=== PATIENT | male | born 1935 | race Hispanic/Latino ===

== ENCOUNTER 2017-10-10 09:43 | Emergency (ER) | payer MEDICARE, OTHER ==
[~2017-10-10] VITALS: Ht 157.5 cm; Wt 85.0 kg
[~2017-10-10 09:43] MED LIST: ANAPROX DS550 MG OR; CIPROFLOXACN500 MG PO; FLEXERIL PO; FLONASE0.05 %; NAPROSYN500 MG PO; TYLENOL COL OR; ULTRAM50 M1 PO; VALTREX500 MG PO
[2017-10-10 10:11] VITALS: BP 150/80
== END 2017-10-10 10:18 | disposition home or self-care (01) ==
LOC: ED 09:43
DX: L60.8 Other nail disorders (principal)

== ENCOUNTER 2019-10-25 16:30 | Inpatient (IN) | payer MEDICARE, OTHER ==
--- NOTE | 2019-10-24 19:00 | NUR ---
RECEIVED REPORT FROM NURSE HUBBARD PATIENT SITTING IN CHAIR, CURRENTLY WATCHING TV, BREATHING UNLABORED, CALL LIGHT AT REACH.
[~2019-10-25] VITALS: Ht 157.5 cm; Wt 61.4 kg
--- NOTE | 2019-10-25 17:00 | NUR ---
pt to room 15 via ems stretcher after delay in offload, pt unkempt, soaked in urine and stool, pupils equal and constricted, pt alert to person only. swelling noted to left side of face, open blister noted to left upper abd, per ems pt found supine under his bed, last known well time 3 days ago. ems did note open beer cans in pt's room. ls diminished, resp shallow tachypneic, abd soft , non tender, bs hypoactive. rash noted to lle. pt changed into gown, bed bath given, belongings secured in belongings bag.
[2019-10-25 17:50] LABS: URINE BLOOD DIPSTICK LARGE (NEGATIVE); URINE COLOR YELLOW; URINE GLUCOSE - DIPSTICK NEGATIVE (NEGATIVE); URINE KETONE TRACE mg/dL (NEGATIVE); URINE NITRITE - DIPSTICK NEGATIVE (Negative); URINE PH 5.5 (4.5-8.0); URINE PROTEIN - DIPSTICK 100 mg/dL (NEG-TRACE); URINE SPECIFIC GRAVITY >=1.030
--- NOTE | 2019-10-25 17:50 | NUR ---
PT RESTING WITH EYES CLOSED, NO S/SF DISTRESS NOTED, CALL ANDREW WITHIN REACH
[2019-10-25 17:53] LABS: HEMOGLOBIN 17.1 g/dl (14.0-18.0); MEAN CELL VOLUME 94.6 fL CALC (80.0-100.0); MEAN CORPUSCULAR HGB 30.7 pG CALC (26.0-32.0); MEAN CORPUSCULAR HGB CONC 32.4 g/dL CAL (32.0-36.0); NEUT# 15.1 thou/uL (1.82-7.42); RED BLOOD COUNT 5.57 mill/uL (4.70-6.10); RED CELL DISTRI WIDTH 14.5 % (11.5-15.5)
[2019-10-25 17:55] LABS: HEMATOCRIT 52.7 % (39.0-50.0)
[2019-10-25 17:58] LABS: URINE BILIRUBIN - DIPSTICK NEGATIVE (NEGATIVE); URINE LEUK ESTERASE SMALL (NEGATIVE)
[2019-10-25 17:59] LABS: URINE AMORPH SEDIMENT MANY hpf (NONE-FER); URINE BACTERIA FEW hpf
[2019-10-25 18:04] LABS: CREATININE 1.9 mg/dL (0.7-1.3); TOTAL PROTEIN 7.3 g/dL (6.3-8.2)
[2019-10-25 18:05] LABS: BILIRUBIN, TOTAL 3.3 mg/dL (0.0-1.4)
--- NOTE | 2019-10-25 19:03 | NUR ---
REPORT TO KADEN ALONSO
--- NOTE | 2019-10-25 19:15 | NUR ---
PT RESTING. VSS. AROUSES. ANSWERS QUESTIONS. IV INFUSING. NO C/O.
--- NOTE | 2019-10-25 20:14 | NUR ---
REPORT TO FRANCO/NURSE/MED-SURG
--- NOTE | 2019-10-25 20:45 | NUR ---
PT INCONT OF URINE. LINENS CHANGED AND PT CLEANED. TAKEN TO FLOOR VIA STRETCHER BY Monserrat MUHAMMAD RN.
[2019-10-25 21:00] VITALS: BP 187/91
[2019-10-26] VITALS (7 sets, daily range): BP systolic 140–184; BP diastolic 59–89
--- NOTE | 2019-10-26 05:53 | NUR ---
Late entry (10/25/2019 2130) Patient received to room 280 from ED via stretcher. Patient mildly lethargic, oriented only to self. Patient oriented to room and instructed on use of call light, will require reminders due to cognitive status. Inventory completed which includes clothing, multiple forms of identification and $31.00. Swelling noted of left eye and cheek. Skin tear noted to the left abdomen and erthyma noted of lower extremities. Unable to successfully complete admission interview with assistance of transfer station attendant. Patient offered fluids at this time, tolerated well. Denies pain at this time. Bed in lowest position, bed alarm activated and call light within reach. Instructed to press call watts for assistance.
--- NOTE | 2019-10-26 07:32 | NUR ---
REPORT RECEIVED FROM NIGHT NURSE. PT SITTING UP IN BED HIGH FOWLERS WASHING HIS FACE; ALERT AND ETHIOPIAN SPEAKING WITH CONFUSION. NO SIGNS OF PAIN OR DISCOMFORT; RESPIRATIONS EVEN AND UNLABORED ON ROOM AIR. BP ELEVATED AT 167/59 HR 83. SPO2 93%. IV FLUIDS INFUSING WITHOUT DIFFICULTY; IV SITES APPEAR HEALTHY X 2. TELE ON. SAFETY MEASURES IN PLACE INCLUDING BED ALARM. NEEDS ARE ANTICIPATED BY STAFF.
--- NOTE | 2019-10-26 09:16 | NUR ---
LAB AT BEDSIDE. PT ALERT AND PLEASANTLY CONFUSED.
[2019-10-26 09:49] LABS: ALBUMIN 3.4 g/dL (3.2-5.0); ALKALINE PHOSPHATASE 81 u/l (38-126); ANION GAP 12 (6-22 (CALC)); BUN 42 mg/dL (8-23); BUN/CREATININE RATIO 37 (12-20 (CALC)); CARBON DIOXIDE 20 mmol/l (22-30); CHLORIDE 119 mmol/l (95-108); CREATININE 1.1 mg/dL (0.7-1.3); GFR > 60 ML/MIN (>=60 (CALC)); GFR FOR AFR.AMER. > 60 ML/MIN (>=60 (CALC)); POTASSIUM 3.9 mmol/l (3.5-5.1); SGOT/AST 54 u/l (19-48); SODIUM 147 mmol/l (137-146); TOTAL PROTEIN 6.3 g/dL (6.3-8.2)
[2019-10-26 09:51] LABS: BILIRUBIN, TOTAL 1.7 mg/dL (0.0-1.4)
--- NOTE | 2019-10-26 12:25 | NUR ---
RECIEVED REPORT FROM KADEN YANG. PT SITTING UP IN CHAIR WATCHING TV. PT IS A/O PERSON ONLY AT THIS TIME. RESPIRATIONS ARE EVEN AND UNLABORED WITH NO SIGNS OF DISTRESS. LUNG SOUNDS ARE CLEAR. HEART RHYTHM IS NORMAL WITH TELE IN PLACE. BOWEL SOUNDS ARE ACTIVE IN ALL QUADRANTS WITH NO TENDERNESS, LAST REPORTED BM IS UNKNOWN. RADIAL PULSES ARE STRONG AND PEDAL PULSES ARE WEAK WITH NORMAL CAPILLARY REFILL. #16 EMS IN RAC FLUSHED, SITE APPEARS HEALTHY AND PATENT. #20LAC RUNNING WITH 1/2 NS @100 ORDERED, SITE APPEARS HEALTHY AND PATENT. PT PRESENTS WITH ABRASIONS TO ABDOMEN AND BLE, BACITRACIN APPLIED. PT PRESENTS WITH LEFT BLANK ORIBITAL EDEMA, SITE IS SLIGHTLY REDDENED. PT DENIES ANY PAIN OR DISCOMFORTS AT THSI TIME. ALL SAFETY PRECAUTIONS ARE IN [place] WITH CALL LIGHT IN REACH AND CHAIR ALARM ACTIVATED. WILL CONTINUE TO MONITOR
--- NOTE | 2019-10-26 16:07 | NUR ---
PT SITTING UP IN CHAIR WATCHING TV. RESPIRATIONS ARE EVEN AND UNLABORED WITH NO SIGNS OF DISTRESS. PT DENIES ANY PAIN OR DISCOMFORTS AT THIS TIME. ALL SAFTEY PRECAUTIONS ARE IN PLACE WITH CALL LIGHT IN REACH AND CHAIR ALARM ACTIVATED. WILL CONTINUE TO MONITOR.
--- NOTE | 2019-10-26 18:12 | NUR ---
IV REMOVED WITH CATHATER STILL INTACT AT THIS TIME. PT TOLERATED WELL. #20G IN LAC REMAINS WITH IV FLUIDS RUNNING AT 100 ML ORDERED. ALL SAFETY PRECAUTIONS ARE IN PLACE WITH CALL LIGHT IN REACH. WILL CONTINUE TO MONITOR.
--- NOTE | 2019-10-26 21:00 | NUR ---
PATIENT ALERT TPO SELF ONLY WITH ONGOING IV OF NS @ 100CC/HR INSUING WELL ON LAC, REMAINS ON TELE SR 81, LEFT EYE APPEARS TO BE SWOLLEN, ABRASION ON ABDOMEN NOTED, BACITRACIN APPLIED, CALL LIGHT AT REACH.
--- NOTE | 2019-10-26 22:03 | NUR ---
CALLED DR. ROCHE AND MADE AWARE THAT PATIENT WAS REFUSING IV REINSERTION. WITH ORDER TO REINSERT IV WHEN MORE PATIENT IS MORE CALM.
--- NOTE | 2019-10-26 23:15 | NUR ---
NEW IV G22 PLACE IN LAC, PATENT FLUSHES WELL HOOKED TO NS @ 100CC/HR INFUSING WELL. BED ALARM IN PLACE.
[2019-10-27] VITALS (12 sets, daily range): BP systolic 133–181; BP diastolic 50–90
--- NOTE | 2019-10-27 05:10 | NUR ---
PATIENT APPEARS TO BE SLEEPING WITH EYES CLOSED, BREATHING EVEN AND UNLABORED VCALL LIGHT AT REACH.
[2019-10-27 06:14] LABS: MEAN CELL VOLUME 95.2 fL CALC (80.0-100.0); MEAN CORPUSCULAR HGB 31.2 pG CALC (26.0-32.0); MEAN CORPUSCULAR HGB CONC 32.7 g/dL CAL (32.0-36.0); RED BLOOD COUNT 4.75 mill/uL (4.70-6.10); RED CELL DISTRI WIDTH 14.2 % (11.5-15.5)
[2019-10-27 06:16] LABS: HEMATOCRIT 45.2 % (39.0-50.0); HEMOGLOBIN 14.8 g/dl (14.0-18.0)
[2019-10-27 06:36] LABS: ALKALINE PHOSPHATASE 97 u/l (38-126); ANION GAP 8 (6-22 (CALC)); BILIRUBIN, TOTAL 1.4 mg/dL (0.0-1.4); BUN 29 mg/dL (8-23); BUN/CREATININE RATIO 29 (12-20 (CALC)); CARBON DIOXIDE 24 mmol/l (22-30); CHLORIDE 112 mmol/l (95-108); GFR > 60 ML/MIN (>=60 (CALC)); GFR FOR AFR.AMER. > 60 ML/MIN (>=60 (CALC)); POTASSIUM 3.4 mmol/l (3.5-5.1); SGOT/AST 51 u/l (19-48); SODIUM 140 mmol/l (137-146); TOTAL PROTEIN 5.7 g/dL (6.3-8.2)
--- NOTE | 2019-10-27 07:30 | NUR ---
RECIEVED REPORT FROM KADEN KIRK. PT SLEEPING IN LOW FOWLERS POSITION. RESPIRATIONS ARE EVEN AND UNLABORED WITH NO SIGNS OF DISTRESS. NO SIGNS OF ANY PAIN AT THIS TIME. ALL SAFETY PRECAUTIONS ARE IN PLACE WITH CALL LIGHT IN REACH. WILL CONTINUE TO MONITOR
--- NOTE | 2019-10-27 07:45 | NUR ---
Critical results of blood culture growing gram negative rods in 3/[address] Burr. New orders received.
--- NOTE | 2019-10-27 08:50 | NUR ---
DR JENKINS AT BEDSIDE DISCUSSING POC WITH PT
--- NOTE | 2019-10-27 08:55 | NUR ---
WRITTER INFORMED THAT PT IV HAS BECOME INFILTRATED. SITE APPEARS SWOLLEN BUT NOT REDDENED. FLUIDS STOPPED AND ATTEMPTED TO INSERT NEW IV. WRITTER FAILED TWICE. NEW IV TO BE STARTED BY HEMA BOYKIN.
--- NOTE | 2019-10-27 09:57 | NUR ---
Patient is screened for rehab intervention. It is felt he would benefit from PT and ST evaluation for strengthening and cognition repectively
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
--- NOTE | 2019-10-27 16:00 | NUR ---
PT RESTING IN RECYLINER WATCHINGT TV. RESPIRATIONS ARE EVEN AND UNLABORED WITH NO SIGNS OF DISTRESS. PT DENIES ANY PAIN OR DISCOMFORTS AT THIS TIME. ALL SAFETY PRECAUTIONS ARE IN PLACE WITH CALL LIGHT IN REACH AND CHAIR ALARM ACTIVATED. WILL CONTINUE TO MONITOR
--- NOTE | 2019-10-27 16:25 | NUR ---
REASSESSMENT OF BP AT THIS TIME. RESULTING IN 162/73, HR 77. RESPIRATIONS ARE EVEN AND UNLABROED WITH NO SIGNS OF DISTRESS. ALL SAFETY PRECAUTIONS ARE IN PLACE WITH CALL LIGHT IN REACH. WILL CONTINUE TO MONITOR.
--- NOTE | 2019-10-27 19:05 | NUR ---
REPORT FROM LEIF GARRIDO. PT NOTED SITTING UP IN CHAIR. NO APPARENT DISTRESS NOTED. PT ALERT AND ORIENTED TO SELF. SPANISHING SPEAKING BUT DOES UNDERSTAND A LITTLE MOZAMBICAN. PT DENIES ANY PAIN OR DISCOMFORT. IV SITE APPEARS HEALTHY. NO CURRENT WANTS OR NEEDS. DISCUSSED POC. BED ALARM FOR SAFETY. CALL LIGHT WITHIN REACH. WILL CONTINUE TO MONITOR.
--- NOTE | 2019-10-27 23:57 | NUR ---
PT BP ELEVATED 181/75. RN ON SHIFT ADMINISTERED PRN APRESOLINE. WILL CONTINUE TO MONITOR AND REASSESS.
[2019-10-28 00:58] VITALS: BP 169/76
--- NOTE | 2019-10-28 03:37 | NUR ---
PT RESTING IN BED WITH EYES CLOSED. NO APPARENT DISTRESS NOTED. RESPIRATIONS EVEN AND UNLABORED. CALL LIGHT WITHIN REACH. WILL CONTINUE TO MONITOR.
[2019-10-28 03:55] VITALS: BP 148/72
[2019-10-28 05:18] LABS: HEMATOCRIT 42.6 % (39.0-50.0); HEMOGLOBIN 14.3 g/dl (14.0-18.0); MEAN CELL VOLUME 93.2 fL CALC (80.0-100.0); MEAN CORPUSCULAR HGB 31.3 pG CALC (26.0-32.0); MEAN CORPUSCULAR HGB CONC 33.6 g/dL CAL (32.0-36.0); RED BLOOD COUNT 4.57 mill/uL (4.70-6.10)
[2019-10-28 05:41] LABS: ALBUMIN 2.7 g/dL (3.2-5.0); ALKALINE PHOSPHATASE 90 u/l (38-126); ANION GAP 8 (6-22 (CALC)); BILIRUBIN, TOTAL 0.9 mg/dL (0.0-1.4); BUN 20 mg/dL (8-23); BUN/CREATININE RATIO 24 (12-20 (CALC)); CARBON DIOXIDE 22 mmol/l (22-30); CHLORIDE 111 mmol/l (95-108); CREATININE 0.8 mg/dL (0.7-1.3); GFR > 60 ML/MIN (>=60 (CALC)); GFR FOR AFR.AMER. > 60 ML/MIN (>=60 (CALC)); POTASSIUM 3.6 mmol/l (3.5-5.1); SGOT/AST 44 u/l (19-48); SODIUM 137 mmol/l (137-146); TOTAL PROTEIN 5.4 g/dL (6.3-8.2)
[2019-10-28 07:51] VITALS: BP 129/66
--- NOTE | 2019-10-28 07:51 | NUR ---
PT SITTING IN BED. A&O TO SELF. REORIENTED PT TO PLACE AND TIME. PT DOES NOT RECALL WHY HE IS HERE. PATRICIA NOTED. PT DENIES ANY PAIN AT THIS TIME. NO OTHER NEEDS AT THIS TIME. ASSESSMENT COMPLETED. DISCUSSED POC. CALL LIGHT IN REACH, BED ALARM IN PLACE FOR SAFETY, PT ENCOURGAED TO USE CALL LIGHT.
--- NOTE | 2019-10-28 09:01 | NUR ---
PT AMBULATING HALLWAY WITH PHYSICAL THERAPY AT SIDE
--- NOTE | 2019-10-28 10:26 | NUR ---
Physical therapy treatment plan explained of which pt. agrees to gait training. Pt. found resting in recliner, sit to stand to RW performed with CGA x1 and verbal+tactile cues for UE push off from armrests. Pt. ambulated 2x50 feet using RW and with CGAx1. Verbal cues provided for normalizing gait pattern LLE>RLE, postural correction and proper use of RW. One seated break provided after first 50 feet. Pt. returned to resting seated in recliner with call light+bedside table within reach, he is without questions/concerns post session. BP: 130/75 and O2 sats at 98%. AMPAC score:14.
--- NOTE | 2019-10-28 10:30 | NUR ---
PT FOUND SITTING ON THE EDGE OF THE RECLINER USING THE URINAL. PT ATTEMPTED TO REMOVE IV AND TELEMETRY MONITORING DEVICE. REORIENTED PT AND EXPLAINED THAT DEVICE AND IV NEEDS TO STAY IN PLACE, PT VERBALIZED UNDERSTANDING. TUBULAR MESH APPLIED TO IV
[2019-10-28 10:59] VITALS: BP 147/64
--- NOTE | 2019-10-28 14:04 | NUR ---
PT SLEEPING IN BED. RESP EVEN AND UNLABORED. CONTINUE TO MONITOR.
[2019-10-28 15:18] VITALS: BP 130/61
--- NOTE | 2019-10-28 19:02 | NUR ---
REPORT FROM ANNIE GARRIDO. PT NOTED RESTING IN BED. NO APPARENT DISTRESS NOTED. PT ALERT AND ORIENTED TO SELF. PT DENIES ANY PAIN OR DISCOMFORT. IV SITE APPEARS HEALTHY. CLAIMS COORDINATOR IN PLACE. NO CURRENT WANTS OR NEEDS. DISCUSSED POC. BED ALARM FOR SAFETY. CALL LIGHT WITHIN REACH. WILL CONTINUE TO MONITOR.
[2019-10-28 19:45] VITALS: BP 121/54
--- NOTE | 2019-10-28 23:36 | NUR ---
PT RESTING IN BED. NO APPARENT DISTRESS NOTED. RESPIRATIONS EVEN AND UNLABORED. CALL LIGHT WITHIN REACH AND BED ALARM FOR SAFETY. WILL CONTINUE TO MONITOR.
--- NOTE | 2019-10-29 03:13 | NUR ---
PT RESTING IN BED. NO APPARENT DISTRESS NOTED. RESPIRATIONS EVEN AND UNLABORED. CALL LIGHT WITHIN REACH AND BED ALARM FOR SAFETY. WILL CONTINUE TO MONITOR.
[2019-10-29 04:10] VITALS: BP 145/68
[2019-10-29 07:23] VITALS: BP 158/68
--- NOTE | 2019-10-29 07:23 | NUR ---
PT SITTING IN BED. A&O TO SELF. REORIENTED PT TO PLACE AND TIME. PT DENIES ANY PAIN AT THIS TIME. ABRAISONS HAVE UNCHANGED APPEARANCE. NO OTHER NEEDS AT THIS TIME. ASSESSMENT COMPLETED. DISCUSSED POC REINFORCEMENT NEEDED. CALL LIGHT IN REACH. CONTINUE TO MONITOR.
[2019-10-29 12:00] VITALS: BP 137/69
--- NOTE | 2019-10-29 12:00 | NUR ---
PT SITTING IN RECLINER. NO DISTRESS NOTED. CALL LIGHT IN REACH. CONTINUE TO MONITOR.
--- NOTE | 2019-10-29 12:16 | NUR ---
PT SITTING IN RECLINER EATING LUNCH. NO DISTRESS OR NEEDS AT THIS TIME. ALARM CLIP PLACED ON GOWN FOR SAFETY. CALL LIGHT IN REACH. CONTINUE TO MONITOR.
[2019-10-29 16:45] VITALS: BP 144/67
--- NOTE | 2019-10-29 17:20 | NUR ---
PT ATTEMPTING TO REMOVE TELE. REORIENTED PT AND EXPLAINED NEED FOR MONITOR, PT COOPERATIVE AND TELE PLACED.
--- NOTE | 2019-10-29 19:05 | NUR ---
REPORT FROM ANNIE GARRIDO. PT NOTED SITTING UP IN CHAIR AT BEDSIDE. NO APPARENT DISTRESS NOTED. PT ALERT AND ORIENTED TO SELF. PT DENIES ANY PAIN OR DISCOMFORT. IV SITE APPEARS HEALTHY. BIOMASS POWER PLANT MANAGER IN PLACE. NO CURRENT WANTS OR NEEDS. DISCUSSED POC. BED ALARM FOR SAFETY. CALL LIGHT WITHIN REACH. WILL CONTINUE TO MONITOR.
[2019-10-29 19:25] VITALS: BP 125/59
[2019-10-29 23:45] VITALS: BP 164/71
--- NOTE | 2019-10-30 01:21 | NUR ---
PT RESTING IN BED WITH EYES CLOSED. NO APPARENT DISTRESS NOTED. RESPIRATIONS EVEN AND UNLABORED. CALL LIGHT WITHIN REACH. WILL CONTINUE TO MONITOR.
[2019-10-30 04:13] VITALS: BP 150/67
--- NOTE | 2019-10-30 05:44 | NUR ---
PT RESTING IN BED WITH EYES CLOSED. NO APPARENT DISTRESS NOTED. RESPIRATIONS EVEN AND UNLABORED. CALL LIGHT WITHIN REACH. WILL CONTINUE TO MONITOR.
[2019-10-30 07:17] VITALS: BP 149/78
--- NOTE | 2019-10-30 07:17 | NUR ---
PT SLEEPING IN BED, AWAKENED TO COMPLETE ASSESSMENT. A&O TO SELF, REORIENTED PT TO PLACE AND TIME, REINFORCEMENT NEEDED. ASSISTED PT TO THE SHOWER WITH THE ASSISTANCE OF ALFREDO MARKS. WOUNDS UNCHANGED IN APPEARANCE. NO NEEDS OR DISTRESS AT THIS TIME. ASSESSMENT COMPLETED. DISCUSSED POC, REINFORCEMENT NEEDED. CALL LIGHT IN REACH. CONTINUE TO MONITOR.
[2019-10-30 11:29] VITALS: BP 129/60
--- NOTE | 2019-10-30 12:45 | NUR ---
PT SITTING ON THE SIDE OF THE BED EATING LUNCH. CALL LIGHT IN REACH. CONTINUE TO MONITOR.
[2019-10-30 16:12] VITALS: BP 128/59
--- NOTE | 2019-10-30 18:16 | NUR ---
PT SLEEPING IN BED. RESP EVEN AND UNLABORED. CONTINUE TO MONITOR
[2019-10-30 19:01] VITALS: BP 131/57
--- NOTE | 2019-10-30 19:05 | NUR ---
REPORT FROM ANNIE GARRIDO. PT NOTED RESTING IN BED. NO APPARENT DISTRESS NOTED. PT ALERT AND ORIENTED TO SELF. PT DENIES ANY PAIN OR DISCOMFORT. IV SITE APPEARS HEALTHY. DIRECTOR OF MARKETING IN PLACE. NO CURRENT WANTS OR NEEDS. DISCUSSED POC. BED ALARM FOR SAFETY. CALL LIGHT WITHIN REACH. WILL CONTINUE TO MONITOR.
--- NOTE | 2019-10-30 23:11 | NUR ---
PT RESTING IN BED WITH EYES CLOSED. NO APPARENT DISTRESS NOTED. FLOAT NURSE REMAINS IN PLACE. BED ALARM FOR SAFETY. CALL LIGHT WITHIN REACH. WILL CONTINUE TO MONITOR.
[2019-10-31 00:45] VITALS: BP 134/60
--- NOTE | 2019-10-31 03:32 | NUR ---
PT RESTING IN BED WITH EYES CLOSED. NO APPARENT DISTRESS NOTED. RESPIRATIONS EVEN AND UNLABORED. CALL LIGHT WITHIN REACH. WILL CONTINUE TO MONITOR.
[2019-10-31 04:32] VITALS: BP 144/57
[2019-10-31 05:28] LABS: HEMATOCRIT 40.5 % (39.0-50.0); HEMOGLOBIN 13.2 g/dl (14.0-18.0); IMMATURE GRANULOCYTES 3.9 % (0.0-5.0); MEAN CELL VOLUME 94.6 fL CALC (80.0-100.0); MEAN CORPUSCULAR HGB 30.8 pG CALC (26.0-32.0); MEAN CORPUSCULAR HGB CONC 32.6 g/dL CAL (32.0-36.0); NEUT# 6.48 thou/uL (1.82-7.42); RED BLOOD COUNT 4.28 mill/uL (4.70-6.10); RED CELL DISTRI WIDTH 14.1 % (11.5-15.5)
[2019-10-31 05:32] LABS: ANION GAP 8 (6-22 (CALC)); BUN 21 mg/dL (8-23); BUN/CREATININE RATIO 21 (12-20 (CALC)); CARBON DIOXIDE 26 mmol/l (22-30); CHLORIDE 107 mmol/l (95-108); GFR > 60 ML/MIN (>=60 (CALC)); GFR FOR AFR.AMER. > 60 ML/MIN (>=60 (CALC)); POTASSIUM 4.3 mmol/l (3.5-5.1); SODIUM 137 mmol/l (137-146)
[2019-10-31 07:57] VITALS: BP 133/57
--- NOTE | 2019-10-31 07:57 | NUR ---
PT SITTING IN BED. A&O TO SELF. REORIENTED PT TO PLACE AND TIME, REINFORCEMENT NEEDED. ABRAISON TO UPPER ABD BLEEDING AT THIS TIME, CLEANSED WOUND AND PLACED ANTIBIOTIC OINTMENT WITH SMALL TELFA DRESSING AND TEGADERM. PT AMBULATING STEADILY WITH WALKER. NO OTHER NEEDS AT THIS TIME. ASSESSMENT COMPLETED. DISCUSSED POC, REINFORCEMENT NEEDED. CALL LIGHT IN REACH, BED ALARM FOR SAFETY. CONTINUE TO MONITOR.
[2019-10-31 11:23] VITALS: BP 113/61
--- NOTE | 2019-10-31 11:35 | NUR ---
RT AT BEDSIDE COMPLETING EKG DUE TO RHYTHM CHANGE, TRISH WILSON NOTIFIED
--- NOTE | 2019-10-31 15:42 | NUR ---
PT SLEEPING IN BED. RESP EVEN AND UNLABORED.CONTINUE TO MONITOR.
--- NOTE | 2019-10-31 18:55 | NUR ---
REPORT FROM ANNIE GARRIDO. PT NOTED RESTING IN BED. NO APPARENT DISTRESS NOTED. PT ALERT AND ORIENTED TO SELF. PT DENIES ANY PAIN OR DISCOMFORT. IV SITE APPEARS HEALTHY. LOSS PREVENTION OPERATIONS MANAGER IN PLACE. NO CURRENT WANTS OR NEEDS. DISCUSSED POC. BED ALARM FOR SAFETY. CALL LIGHT WITHIN REACH. WILL CONTINUE TO MONITOR.
[2019-10-31 19:40] VITALS: BP 134/63
--- NOTE | 2019-10-31 23:06 | NUR ---
PT RESTING IN BED WITH EYES CLOSED. NO APPARENT DISTRESS NOTED. ASBESTOS HANDLER REMAINS IN PLACE. BED ALARM FOR SAFETY. CALL LIGHT WITHIN REACH. WILL CONTINUE TO MONITOR.
[2019-11-01] VITALS (7 sets, daily range): BP systolic 116–144; BP diastolic 51–89
--- NOTE | 2019-11-01 03:03 | NUR ---
PT RESTING IN BED. NO APPARENT DISTRESS NOTED. HARBOR PATROL POLICE IN PLACE. CALL LIGHT WITHIN REACH. WILL CONTINUE TO MONITOR.
--- NOTE | 2019-11-01 08:30 | NUR ---
ASSESSMENT IS COMPLTED: IV SITE IS FREE FROM REDNESS OR EDEMA. HR IS REG,PULSES ARE STRONG X4, ABD IS SOFT WITH ACTIVE BS. BREATH SOUNDS ARE CLEAR,BILATETALLY, TELE WAS ON AND OFF THE PT. SORES ON LEGS., AND ABRASION ON ABD UNDER LEFT BREAST. CONTINUE TO MONITOR.
--- NOTE | 2019-11-01 12:03 | NUR ---
pt was seen for therex and gait training. VC for BUE push off from bed rather than pulling on RW to achieve sit to stand. Pt ambulated 50ft x2 with RW. Directional changes with RW and gait pattern normal. Pt then performed seated knee ext 2x10, standing heel raises 2x10, marching in place 2x10, standing hip ext 2x10, standing hamstring curls 1x10. Ampac=14
--- NOTE | 2019-11-01 12:30 | NUR ---
PT IS SITTING IN THE CHAIR, THEN AMBULATES AROUND THE ROOM. IV SITE IS FREE FROM REDNESS OR EDEMA. CONTINUE TO OSBERVE AND MONITOR.
--- NOTE | 2019-11-01 16:30 | NUR ---
PT IS RESTING WITH EYES CLOSED. CONTINUE TO OBSERVE AND MONITOR.
--- NOTE | 2019-11-01 17:30 | NUR ---
DRESSING PLACED ON LEFT CHEST UNDER BREAST . WITH BACITRACIN. CONTINUE TO OBSERVE AND MONITOR.
--- NOTE | 2019-11-01 19:00 | NUR ---
RECEIVED REPORT FROM NURSE RODRIGUEZ PATIENT SITTING IN CHAIR, WATCHING TV, BREATHING EVEN AND UNLABORED, CALL LIGHT AT REACH.
--- NOTE | 2019-11-01 21:00 | NUR ---
PATIENT ALERT WITH CONFUSIONS NOTED, WITH SALINE LOCK ON RFA PATENT FLUSHES WELL, LBM 10/30, BREATHING EVEN AND UNLABORED, CALL LIGHT AT REACH. DRESSING ON LEFT LOWER BREAST CHANGED ORDERED.CALL LIGHT AT REACH, BED ALARM IN PLACE.
--- NOTE | 2019-11-02 | NUR ---
PATIENT APPEARS TO BE SLEEPING WITH EYES CLOSED, BREATHING EVEN AND UNLABORED CALL LIGHT AT REACH.
--- NOTE | 2019-11-02 04:04 | NUR ---
PATIENT RESTING IN BED WITH EYES CLOSED, BREATHING EVEN UNLABORED CALL LIGHT AT REACH, BED ALARM IN PLACE.
[2019-11-02 04:23] VITALS: BP 98/43
[2019-11-02 05:23] VITALS: BP 104/58
[2019-11-02 09:00] VITALS: BP 115/68
--- NOTE | 2019-11-02 09:00 | NUR ---
ASSESSMENT IS COMPLETED: IV SITE IS FREE FROM REDNESS OR EDEMA./ HR IS REG, PULSES ARE STRONG X4, ABD IS SOFT WITH ACTIVE BS. BREATH SOUNDS ARE CLEAR BILATERALLY. CONTINUE TO OBSERVE AND MONITOR.
--- NOTE | 2019-11-02 12:02 | NUR ---
Pt. found resting in recliner, he is easily awoken and agreed to participate in physical therapy. Translation done by treating clinician. Pt. worked on functional activties of transfer training sit to stand, stand to sit and bed mobility (scooting to reposition higher in bed) with CGA x1 and continual verbal+tactile cues. Pt. also participated in gait training with CGAx1 2x50 feet using RW and verbal cues for how to use walker, normal gait pattern, change in direction and visual scanning. Pt. returned to resting in bed without questions/concerns, AMPAC score:14.
--- NOTE | 2019-11-02 12:30 | NUR ---
PT IS RELAXING IN BED WITH NO DISTRESS NOTED. IV SITE IS FREE FROM REDNESS OR EDEMA.
[2019-11-02 15:00] VITALS: BP 122/63
--- NOTE | 2019-11-02 16:20 | NUR ---
PT HAS BEEN RESTING THIS PM. NO DISTRESS NOTED. IV SITE IS FREE FROM REDNESS OR EDEMA.
--- NOTE | 2019-11-02 19:00 | NUR ---
RECEIVED REPORT FROM NURSE RODRIGUEZ PATIENT RESTING IN BED, EYES CLOSED, BREATHING EVEN UNLABORED CALL LIGHT AT REACH.
[2019-11-02 19:30] VITALS: BP 117/47
--- NOTE | 2019-11-02 21:00 | NUR ---
PATIENT ALERT TO SELF, SALINE LOCK ON RFA PATENT FLUSHES WELL, DRESSING CHANGED ON RUQ DONE ORDERED, DENIES PAIN OR DISCOMFORT, PATIENT ASSISTED TO CHAIR, ALARM IN PLACE.
--- NOTE | 2019-11-03 01:07 | NUR ---
PATIENT APPEARS TO BE SLEEPING WITH EYE CLOSED, BREATHING EVEN AND UNLABORED CALL LIGHT AT REACH.
[2019-11-03 03:30] VITALS: BP 131/63
--- NOTE | 2019-11-03 04:24 | NUR ---
PATIENT RESTING IN BED, EYES CLOSED, NOT IN DISTRESS BED ALRM IN PLACE,
--- NOTE | 2019-11-03 07:51 | NUR ---
RECIEVED REPORT FROM KADEN KIRK. PT RESTING IN CHAIR UPON ENTERING ROOM. DISSCUSED POC. RESPIRATIONS ARE EVEN AND UNLABORED WITH NO SIGNS OF DISTRESS. ALL SAFTEY PRECAUTIONS ARE IN PLACE WITH CALL LIGHT IN REACH. WILL CONTINUE TO MONITOR
[2019-11-03 09:31] VITALS: BP 128/62
--- NOTE | 2019-11-03 09:31 | NUR ---
ASSESSMENT AND VITALS COMPLETED AT THIS TIME.PT IS A/O TO SELF. BP 128/62, HR 77, O2 97% ON ROOM AIR. RESPIRATIONS ARE EVEN AND UNLABORED WITH NO SIGNS OF DISTRESS. LUNG SOUNDS ARE CLEAR. HEART RHYTHM IS NORMAL. BOWEL SOUNDS ARE ACTIVE IN ALL QUADRANTS WITH NO TENDERNESS, LAST REPORTED BM 11/03/19. RADIAL AND PEDAL PULSES ARE STRONG WITH NORMAL CAPILLARY REFILL. #20 IN RFA FLUSHED, SITE APPEARS HEALTHY AND PATENT. PT PRESENT WITH ABRASION ON UPPER LEFT QUDRANT OF ABD, DRESSING CHANGED AT THIS TIME AND BACITRACIN APPLIED AT THIS TIME. PT ALSO PRESENTS WITH MULTIPLE SMALL SCABBED ABRASIONS ON LOWER EXTREMITIES. PT DENIES ANY PAIN OR DISCOMFORTS AT THIS TIME. ALL SAFETY PRECAUTIONS ARE IN PLACE WITH CALL LIGHT IN REACH. WILL CONTINUE TO MONITOR.
--- NOTE | 2019-11-03 12:38 | NUR ---
PT SITTING UP IN CHAIR WATCHING TV. RESPIRATIONS ARE EVEN AND UNLABORED WITH NO SIGNS OF DISTRESS.PT DENIES ANY NEEDS AT THIS TIME. ALL SAFETY PRECAUTIONS ARE IN PLACE WITH CHAIR ALARM ACTIVATED. ALL SAFTEY PRECAUTIONS ARE IN PLACE WITH CALL LIGHT IN REACH. WILL CONTINUE TO MONITOR
--- NOTE | 2019-11-03 14:38 | NUR ---
[facility] AT BEDSIDE DISCUSSING POC FOR PLACEMENT
--- NOTE | 2019-11-03 14:51 | NUR ---
pt reported he was too tired to participate in physical therapy but stated he would walk tomorrow ampac=14
--- NOTE | 2019-11-03 16:19 | NUR ---
PT SITTING ON MOVIE EXTRA WATCHING TV. RESPIRATIONS ARE EVEN AND UNLABORED WITH NO SIGNS OF DISTRESS. PT DENIES ANY NEEDS OR DICOMFORTS AT THIS TIME. ALL SAFETY PRECAUTIONS ARE IN PLACE WITH CALL LIGHT IN REACH. WILL CONTINUE TO MONITOR
[2019-11-03 16:45] VITALS: BP 117/59
--- NOTE | 2019-11-03 19:01 | NUR ---
REPORT FROM LEIF GARRIDO. PT NOTED RESTING IN BED. NO APPARENT DISTRESS NOTED. PT ALERT AND ORIENTED TO SELF. PT DENIES ANY PAIN OR DISCOMFORT. IV SITE APPEARS HEALTHY. NO CURRENT WANTS OR NEEDS. DISCUSSED POC. BED ALARM FOR SAFETY. CALL LIGHT WITHIN REACH. WILL CONTINUE TO MONITOR.
[2019-11-03 19:29] VITALS: BP 141/69
--- NOTE | 2019-11-03 23:08 | NUR ---
PT RESTING IN BED. NO APPARENT DISTRESS NOTED. RESPIRATIONS EVEN AND UNLABORED. CALL LIGHT WITHIN REACH. WILL CONTINUE TO MONITOR.
--- NOTE | 2019-11-04 03:09 | NUR ---
PT RESTING IN BED WITH EYES CLOSED. NO APPARENT DISTRESS NOTED. RESPIRATIONS EVEN AND UNLABORED. CALL LIGHT WITHIN REACH. WILL CONTINUE TO MONITOR.
[2019-11-04 04:42] VITALS: BP 108/53
[2019-11-04 07:10] VITALS: BP 113/54
--- NOTE | 2019-11-04 07:10 | NUR ---
PT SLEEPING IN BED. AWAKENED TO COMPLETE ASSESSMENT. A&O TO SELF. REORIENTED PT TO TIME AND PLACE, REINFORCEMENT NEEDED. ABRASION COVERED WITH DRESSING, CDI. NO NEEDS AT THIS TIME. ASSESSMENT COMPLETED. DISCUSSED POC REINFORCEMENT . CALL LIGHT IN REACH. CONTINUE TO MONITOR.
--- NOTE | 2019-11-04 10:31 | NUR ---
PHYSICAL THERAPY AT BEDSIDE
--- NOTE | 2019-11-04 11:39 | NUR ---
Pt. resting in bed and agrees to participate in PT, translation done treating clinician. Pt. ambulated 2x60 feet using RW and with CGA, one standing rest period provided. Verbal cues given for postural correction, wider BEATRIZ, gait pattern and safety awareness. Pt. also participated in therapeutic exercises x 10 repetitions each: seated marching, standing hip abductions with UE support and seated pillow squeezes (hip add. isometrics). Continual verbal cues and visual demonstrations provided to assist with proper technique on exercises. Post session pt. back in bed (supine) without questions/concerns and reported he was very thankful. Bedside table+call light left within reach. AMPAC score:15.
--- NOTE | 2019-11-04 12:15 | NUR ---
PER CASE MANAGEMENT, PT ACCEPTED TO [facility]. PT SWABBED TO R/O C-19.
[2019-11-04] MEDS ORDERED: AMLODIPINE BESYL5 MG PO (13:07)
[2019-11-04] MEDS ORDERED: LEVAQUIN750 MG PO (13:07)
[2019-11-04] MEDS ORDERED: CORTISPORIN15 GM EX (13:13)
[2019-11-04 14:34] VITALS: BP 122/54
--- NOTE | 2019-11-04 14:38 | NUR ---
D/C INSTRUCTIONS GIVEN TO PT, PT VERBALIZED UNDERSTANDING BUT REINFORCEMENT IS NEEDED. PT EXPLAINED HE WOULD BE GOING TO [facility]. IV INTACT UPON REMOVAL
--- NOTE | 2019-11-04 16:05 | NUR ---
Discharge instructions given pt reminded that he was going to [facility]. Patient verbalizes understanding of same. Discharged in stable condition via Medical Transport to [facility] accompanied by this nurse. All belongings sent with pt.
--- NOTE | 2019-11-04 16:12 | NUR ---
REPORT GIVEN TO [facility]
== END 2019-11-04 15:52 | DRG 690 ==
LOC: ED 16:30 → ED-I 19:00 → ED 19:25 → ED-I 19:26 → MS2 19:26
PROVIDERS: Emergency Medicine; Nurse Practitioner; Nurse Practitioner Family; ADMIT Internal Medicine; ATTEND Internal Medicine
DX: N39.0 Urinary tract infection, site not specified (principal); N17.9 Acute kidney failure, unspecified; M62.82 Rhabdomyolysis; E87.2 Acidosis; G93.49 Other encephalopathy; R78.81 Bacteremia; E86.0 Dehydration; I10 Essential (primary) hypertension; S80.812A Abrasion, left lower leg, initial encounter; S80.811A Abrasion, right lower leg, initial encounter; S30.811A Abrasion of abdominal wall, initial encounter; E87.6 Hypokalemia; B96.20 Unspecified Escherichia coli [E. coli] as the cause of diseases classified elsewhere; W19.XXXA Unspecified fall, initial encounter; Y92.009 Unspecified place in unspecified non-institutional (private) residence as the place of occurrence of the external cause; Z20.828 Contact with and (suspected) exposure to other viral communicable diseases